=== PATIENT | male | born 1960 | race Caucasian/White ===

== ENCOUNTER 2016-06-13 15:54 | Outpatient (CLI) | payer OTHER | END 2016-06-13 16:00 | LOC: LAB 15:54 | PROVIDERS: ATTEND Family Medicine | DX: E11.9 Type 2 diabetes mellitus without complications (principal) | CPT/HCPCS: 36415; 83036 ==

== ENCOUNTER 2016-08-12 13:56 | Outpatient (CLI) | payer OTHER | END 2016-08-12 14:10 | LOC: POD 13:56 | PROVIDERS: ATTEND Podiatrist | DX: E11.42 Type 2 diabetes mellitus with diabetic polyneuropathy (principal); B35.1 Tinea unguium | CPT/HCPCS: 99213 ==

== ENCOUNTER 2016-09-23 09:09 | Outpatient (CLI) | payer OTHER | END 2016-09-23 09:10 | LOC: LAB 09:09 | PROVIDERS: ATTEND Family Medicine | DX: E11.9 Type 2 diabetes mellitus without complications (principal) | CPT/HCPCS: 36415; 83036 ==

== ENCOUNTER 2016-11-10 14:30 | Outpatient (CLI) | payer OTHER | END 2016-11-10 14:32 | LOC: LAB 14:30 | PROVIDERS: ATTEND Family Medicine | DX: E11.9 Type 2 diabetes mellitus without complications (principal) | CPT/HCPCS: 36415; 83036 ==

== ENCOUNTER 2016-11-11 12:46 | Outpatient (CLI) | payer OTHER | END 2016-11-11 12:47 | LOC: POD 12:46 | PROVIDERS: ATTEND Podiatrist | DX: E11.42 Type 2 diabetes mellitus with diabetic polyneuropathy (principal); B35.1 Tinea unguium | CPT/HCPCS: 99213 ==

== ENCOUNTER 2017-02-24 15:37 | Outpatient (CLI) | payer OTHER | END 2017-02-24 15:40 | LOC: POD 15:37 | PROVIDERS: ATTEND Podiatrist | DX: B35.1 Tinea unguium (principal); M79.674 Pain in right toe(s); E11.42 Type 2 diabetes mellitus with diabetic polyneuropathy | CPT/HCPCS: 99213 ==

== ENCOUNTER 2017-05-19 07:47 | Outpatient (CLI) | payer OTHER ==
[2017-05-19 08:23] LABS: BASOPHILS % 0.8 (0.0-1.5); EOSINOPHILS % 4.1 % (0.0-6.8); MEAN CORPUSCULAR HEMOGLOBIN 30.2 pg (28.0-34.0); MONOCYTES % 7.7 % (0.0-11.0); NEUTROPHILS # 4.2 # k/uL (1.4-7.7)
[2017-05-19 09:31] LABS: eGFR (African) > 60; eGFR (Non-African) > 60
== END 2017-05-19 10:08 ==
LOC: LAB 07:47
PROVIDERS: ATTEND Family Medicine
DX: E11.9 Type 2 diabetes mellitus without complications (principal); E78.00 Pure hypercholesterolemia, unspecified; Z51.81 Encounter for therapeutic drug level monitoring; I10 Essential (primary) hypertension
CPT/HCPCS: 36415; 80053; 80061; 80156; 83036; 85025

== ENCOUNTER 2017-05-26 12:37 | Outpatient (CLI) | payer OTHER | END 2017-05-26 12:40 | LOC: POD 12:37 | PROVIDERS: ATTEND Podiatrist | DX: B35.1 Tinea unguium (principal); E11.42 Type 2 diabetes mellitus with diabetic polyneuropathy; M79.674 Pain in right toe(s) | CPT/HCPCS: 11721; 99213 ==

== ENCOUNTER 2017-07-07 19:23 | Emergency (ER) | payer OTHER ==
[2017-07-07 20:16] VITALS: BP 116/79
[2017-07-07 20:24] LABS: BASOPHILS % 1.1 (0.0-1.5); EOSINOPHILS % 4.2 % (0.0-6.8); MEAN CORPUSCULAR HEMOGLOBIN 30.8 pg (28.0-34.0); MEAN CORPUSCULAR VOLUME 90.7 fl (80.0-100.0); MONOCYTES % 5.5 % (0.0-11.0); NEUTROPHILS # 4.7 # k/uL (1.4-7.7)
[2017-07-07 20:29] LABS: eGFR (African) > 60; eGFR (Non-African) > 60
--- NOTE | 2017-07-07 21:59 | ED Physician Documentation ---
General Adult - HISTORIAN Historian: patient - HPI Stated Complaint: L HAND SWOLLEN/COLD Chief Complaint: General Adult Onset: hours Timing: worse Further Comments: yes (56 year old male patient with TBI brought in by staff from [facility]. Patient underwent botox injections for left arm contractures this morning. This afternoon staff noticed arm with edema and cool to touch. Dr Tripp contacted by nursing, reported edema and hypothermia would not be side effects of botox IM. Recommended evaluation in ER. 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, hypothyroid, ) Surgeries/Procedures: other (Left Above the knee amputee, Brain emboli 1992) Allergies/Adverse Reactions: Allergies Allergy/AdvReac Type Severity Reaction Status Date / Time valproic acid Allergy Verified 07/07/17 20:17 Home Medications: Ambulatory Orders Medication Instructions Recorded Acetaminophen [Tylenol] 650 mg PO Q6 PRN 07/07/17 Aspirin [Kenneth] 81 mg PO DAILY 07/07/17 Atorvastatin Calcium [Lipitor] 80 mg PO HS 07/07/17 Baclofen 10 mg PO 0812 07/07/17 Baclofen 20 mg PO 1600 07/07/17 Carbamazepine [Tegretol] 500 mg PO BID 07/07/17 Cholecalciferol [Vitamin D-3] 2,000 unit PO DAILY 07/07/17 Desmopressin Acetate 0.4 mg PO HS 07/07/17 Gabapentin [Neurontin] 300 mg PO TID 07/07/17 Gabapentin [Neurontin] 600 mg PO HS 07/07/17 Glimepiride [Amaryl] 4 mg PO 0730 07/07/17 Levothyroxine Sodium [Levoxyl] 88 mcg PO 0700 07/07/17 Loperamide HCl [Immodium] 2 mg PO PRN PRN 07/07/17 Metformin HCl [Glucophage] 500 mg PO [id number] 07/07/17 Omeprazole [Prilosec] 40 mg PO 0700 07/07/17 Topiramate 100 mg PO HS 07/07/17 Topiramate [Topamax] 50 mg PO DAILY 07/07/17 Venlafaxine HCl [Venlafaxine HCl 225 mg PO DAILY 07/07/17 ER] traZODone HCL [Desyrel] 150 mg PO HS 07/07/17 - SOCIAL HX Smoking History: cigarettes - FAMILY HX Family History: No - VITAL SIGNS Vital Signs: Vital Signs Temp Pulse Resp BP Pulse Ox 98.3 F 82 18 116/79 96 07/07/17 19:26 07/07/17 19:26 07/07/17 19:26 07/07/17 19:26 07/07/17 19:26 - REVIEWED ASSESSMENTS Nursing Assessment Reviewed: Yes Vitals Reviewed: Yes Progress - Progress Progress: Left arm elevated and wrapped in warm blanket on arrival. Left arm now warm to touch with prompt cap refill Patient staff denies any recent injury. Case discussed with Dr Vargas, arm has remained warm to touch with prompt cap refill since elevation. Will obtain US of left extremity in the morning. Appointment schedule and instructions reviewed with hourly caregiver staff. ED Results Lab/Radiology - Lab Results Lab Results: Lab Results 07/07/17 07/07/17 07/07/17 20:14 20:14 20:14 WBC 7.10 K/ul K/ul (4.00-12.00) RBC 4.74 M/ul M/ul (3.90-5.20) Hgb 14.6 g/dL g/dL (12.0-18.0) Hct 43.0 % % (37.0-53.0) MCV 90.7 fl fl (80.0-100.0) MCH 30.8 pg pg (28.0-34.0) MCHC 33.9 g/dL g/dL (30.0-36.0) RDW 14.1 % % (11.3-14.3) Plt Count 253 K/mm3 K/mm3 (130-400) Neut % (Auto) 67.0 % % (39.0-79.0) Lymph % (Auto) 20.7 % % (16.0-50.0) [place] % (Auto) 5.5 % % (0.0-11.0) Eos % (Auto) 4.2 % % (0.0-6.8) Baso % (Auto) 1.1 (0.0-1.5) Neut # (Auto) 4.7 # k/uL # k/uL (1.4-7.7) Lymph # (Auto) 1.5 # k/uL # k/uL (0.6-4.0) [place] # (Auto) 0.4 # k/uL # k/uL (0.0-0.9) Eos # (Auto) 0.3 # k/uL # k/uL (0.0-0.6) Baso # (Auto) 0.1 # k/uL # k/uL (0.0-0.5) Reactive Lymphs % 1.5 % % (0.0-5.0) Reactive Lymphs # 0.1 # k/uL # k/uL (0.0-0.8) D-Dimer 961 ng/mL H ng/mL (6.0-682) Sodium 145 mmol/L mmol/L (136-145) Potassium 3.9 mmol/L mmol/L (3.5-5.1) Chloride 107 mmol/L mmol/L (98-107) Carbon Dioxide 26 mmol/L mmol/L (22-30) BUN 14 mg/dL mg/dL (9-20) Creatinine 0.70 mg/dL mg/dL (0.66-1.25) Estimated Creat Clear 182 Est GFR ( Amer) > 60 (60 - ) Est GFR (Non-Af Amer) > 60 (60 - ) Glucose 147 mg/dL H mg/dL (74-106) Calcium 9.0 mg/dL mg/dL (8.4-10.2) Total Bilirubin 0.6 mg/dL mg/dL (0.2-1.3) AST 23 U/L U/L (15-46) ALT 28 U/L U/L (13-69) Alkaline Phosphatase 107 U/L U/L (38-126) Total Protein 7.1 g/dL g/dL (6.3-8.2) Albumin 3.9 g/dL g/dL (3.5-5.0) - Orders Orders: ED Orders Category Date Time Status CHEST 1 VIEW [RAD] Stat Exams 07/07/17 19:55 Ordered CBC/PLATELET/DIFF Stat Lab 07/07/17 20:14 Completed CMP Stat Lab 07/07/17 20:14 Completed D DIMER Stat Lab 07/07/17 20:14 Completed General Adult Physical Exam - PHYSICAL EXAM GENERAL APPEARANCE: [id number] N EENT: eye inspection normal, ROSA RESPIRATORY: no resp distress, chest non-tender, breath sounds normal CVS: reg rate & rhythm, heart sounds normal, equal pulses, no murmur, no gallop , PMI nml, no JVD, no friction rub, 24 EXTREMITIES: non-tender, normal range of motion, no evidence of injury, no edema , other (left arm with mild edema; mid left forearm cool to touch, left hand cool to touch, cap refill 5 seconds; left AKA, WC bound) NEURO: sensation nml, mood/affect nml, cognition normal, other (left arm with contractures, minimal gross motor movement. Patient answers questions, calm and cooperative, staff reports he is at his baseline. ) Discharge Clincal Impression: left arm edema Referrals: Eduardo Vargas MD [Primary Care Provider] - 2 Days Additional Instructions: Rest Elevation of left arm at all times until Ultrasound completed. Return for Ultrasound of left arm tomorrow at [facility] at 9:00am Return to ER if edema becomes worse, arm is cold or cyanotic (blue/discolored). Condition: Stable Disposition: 01 HOME, SELF-CARE Decision to Admit: NO Decision Time: 21:59
--- NOTE | 2017-07-08 06:45 | Diagnostic Imaging Report ---
TORRES RODRIGUEZ (ERIKA) - [facility] [address] [facility].[address] [address] Report Submission Date: Jul 07, 2017 8:25:40 PM [employer] Patient Study Name: KAELA BURGOS Date: Jul 07, 2017 8:10:57 PM [employer] Modality Type: CR Gender: M Description: CHEST : 64 Institution: [facility] Physician: TORRES RODRIGUEZ) - ER Portable chest History: Cough and left upper extremity edema Findings: Low lung volumes, multiple healed left rib fractures, and superior mediastinal widening are observed. The lungs are clear. Heart size is normal. There is no pleural effusion. Pulmonary vascularity is normal. Impression: 1. Mild superior mediastinal widening is nonspecific in the setting of obesity. 2. Low lung volumes. 3. Healed left rib fractures. Electronically signed on Jul 07, 2017 8:25:40 PM [employer] by: Yaakov BREEN
== END 2017-07-07 22:03 | disposition home or self-care (01) ==
LOC: ED 19:23
DX: R60.9 Edema, unspecified (principal)
CPT/HCPCS: 71010; 80053; 85025; 85379; 99282; 99283

== ENCOUNTER 2017-07-08 08:30 | Outpatient (CLI) | payer OTHER ==
[2017-07-07 20:16] VITALS: BP 116/79
--- NOTE | 2017-07-08 09:44 | Diagnostic Imaging Report ---
ANDREA ALONSO [facility] [address] [facility] [address] [place] [address]. [id number] Report Submission Date: Jul 08, 2017 9:37:39 AM [employer] Patient Study Name: KAELA BURGOS Date: Jul 08, 2017 9:03:03 AM [employer] Modality Type: US Gender: M Description: UNILAT LTD STDY EXT VEINS : 64 Institution: [facility] Physician: ANDREA ALONSO Duplex sonography of the deep venous system of the left upper extremity with color Doppler analysis . Clinical history: Edema of the left upper extremity with pain, history of an old trauma 30 years ago . Study is performed routinely . Left internal jugular vein is patent free of any clots Left subclavian, axillary and brachial veins are patent free of any clots. Doppler signal is normal. Left basilic vein, left cephalic veins and left ulnar veins are patent free of any clots. Left radial vein is patent. No visible deep venous thrombosis. All the veins are normally compressed. Impression: No visible deep venous thrombosis of the left upper extremity Electronically signed on Jul 08, 2017 9:37:39 AM [employer] by: Sanchez BREEN
== END 2017-07-08 08:32 ==
LOC: RAD 08:30
PROVIDERS: ATTEND Emergency Medicine
DX: R79.1 Abnormal coagulation profile (principal); R60.9 Edema, unspecified
CPT/HCPCS: 93971

== ENCOUNTER 2017-08-25 12:59 | Outpatient (CLI) | payer OTHER | END 2017-08-25 13:00 | LOC: POD 12:59 | PROVIDERS: ATTEND Podiatrist | DX: E11.42 Type 2 diabetes mellitus with diabetic polyneuropathy (principal); B35.1 Tinea unguium; M79.674 Pain in right toe(s) | CPT/HCPCS: 99213 ==

== ENCOUNTER 2017-09-02 12:26 | Outpatient (CLI) | payer OTHER ==
[2017-09-02 12:45] LABS: BASOPHILS % 0.6 (0.0-1.5); EOSINOPHILS % 1.6 % (0.0-6.8); MEAN CORPUSCULAR HEMOGLOBIN 30.5 pg (28.0-34.0); MONOCYTES % 7.6 % (0.0-11.0); NEUTROPHILS # 8.9 # k/uL (1.4-7.7)
[2017-09-02 12:48] LABS: APPEARANCE,URINE Slightly Cloudy (CLEAR); COLOR,URINE Yellow (YELLOW); OCCULT BLOOD,URINE 2+ (NEGATIVE); UROBILINOGEN URINE 0.2 Eu (0.2-1.0)
[2017-09-02 13:08] LABS: eGFR (African) > 60; eGFR (Non-African) > 60
[2017-09-02 13:19] LABS: AMORPHOUS SEDIMENT,UR MODERATE (NEGATIVE)
== END 2017-09-02 12:27 ==
LOC: LAB 12:26
PROVIDERS: ATTEND Family Medicine
DX: E03.9 Hypothyroidism, unspecified (principal); E11.9 Type 2 diabetes mellitus without complications; N39.498 Other specified urinary incontinence; Z51.81 Encounter for therapeutic drug level monitoring
CPT/HCPCS: 36415; 80053; 80156; 81002; 83036; 84443; 85025

== ENCOUNTER 2017-09-02 17:13 | Emergency (ER) | payer OTHER ==
--- NOTE | 2017-09-02 17:23 | ED Physician Documentation ---
General Adult - HISTORIAN Historian: patient - HPI Stated Complaint: high blood sugar Chief Complaint: General Adult Onset: hours (1), other (although healthcare administration internship with him states she notes he has been "acting off" for a few days. His PCP - Dr Vargas- did some lab this am. He has no complaints today. He states he is hungry ) Timing: better (blood sugar in ambulance and in ER is 160 and 147 ) Further Comments: yes (Denies any weakness. He has no recent head injury. Denies any new seizures.) Last known Well Code/Unknown Code: Unknown - ROS CONST: denies: fever, sweating, recent illness, weakness CVS/RESP: denies: chest pain, shortness of breath, cough GI/: denies: vomiting, nausea, diarrhea MS/SKIN/LYMPH: none NEURO/PSYCH: denies: headache - PAST HX Past History: other Other History: other Surgeries/Procedures: other Immunizations: UTD Allergies/Adverse Reactions: Allergies Allergy/AdvReac Type Severity Reaction Status Date / Time valproic acid Allergy Verified 07/07/17 20:17 Home Medications: Ambulatory Orders Medication Instructions Recorded Acetaminophen [Tylenol] 650 mg PO Q6 PRN 07/07/17 Aspirin [Kenneth] 81 mg PO DAILY 07/07/17 Atorvastatin Calcium [Lipitor] 80 mg PO HS 07/07/17 Baclofen 10 mg PO 0812 07/07/17 Baclofen 20 mg PO 1600 07/07/17 Carbamazepine [Tegretol] 500 mg PO BID 07/07/17 Cholecalciferol [Vitamin D-3] 2,000 unit PO DAILY 07/07/17 Desmopressin Acetate 0.4 mg PO HS 07/07/17 Gabapentin [Neurontin] 300 mg PO TID 07/07/17 Gabapentin [Neurontin] 600 mg PO HS 07/07/17 Loperamide HCl [Immodium] 2 mg PO PRN PRN 07/07/17 Metformin HCl [Glucophage] 500 mg PO [id number] 07/07/17 Topiramate 100 mg PO HS 07/07/17 Topiramate [Topamax] 50 mg PO DAILY 07/07/17 traZODone HCL [Desyrel] 150 mg PO HS 07/07/17 - SOCIAL HX Smoking History: non-smoker Alcohol Use: none Drug Use: none - FAMILY HX Family History: No - VITAL SIGNS Vital Signs: Vital Signs Temp Pulse Resp BP Pulse Ox 116/79 07/07/17 19:26 - REVIEWED ASSESSMENTS Nursing Assessment Reviewed: Yes Vitals Reviewed: Yes ED Results Lab/Radiology - Lab Results Lab Results: 1730: discussed labs that Dr Vargas had drawn earlier in day. No significant findings. No emergent issues to be tested today. Follow up with PCP for outpt testing on symptoms he had addressed DG General Adult Physical Exam - PHYSICAL EXAM GENERAL APPEARANCE: no distress EENT: eye inspection normal, ENT inspection normal, ROSA NECK: normal inspection RESPIRATORY: no resp distress, chest non-tender, breath sounds normal CVS: reg rate & rhythm, heart sounds normal, no murmur ABDOMEN: soft, normal bowel sounds SKIN: warm/dry, normal color NEURO: oriented X3, CN's nml as tested Discharge Clincal Impression: Abnormal blood sugar Referrals: Eduardo Vargas MD [Primary Care Provider] - 2 Days Additional Instructions: 1.continued meds 2. Follow up with Dr Vargas on labs 3. return to ER for any concerns Condition: Stable Disposition: 01 HOME, SELF-CARE Decision to Admit: NO Date of Decison to Admit: 09/02/17 Decision Time: 17:38
[2017-09-02 17:36] VITALS: BP 130/94
== END 2017-09-02 18:00 | disposition home or self-care (01) ==
LOC: ED 17:13
DX: R73.9 Hyperglycemia, unspecified (principal)
CPT/HCPCS: 99282

== ENCOUNTER 2017-09-21 15:20 | Outpatient (CLI) | payer OTHER | END 2017-09-21 15:23 | LOC: LAB 15:20 | PROVIDERS: ATTEND Nurse Practitioner Family | DX: Z51.81 Encounter for therapeutic drug level monitoring (principal) | CPT/HCPCS: 36415; 80156; 85610 ==

== ENCOUNTER 2017-10-13 14:26 | Outpatient (CLI) | payer OTHER | END 2017-10-13 14:28 | LOC: LAB 14:26 | PROVIDERS: ATTEND Nurse Practitioner Family | DX: Z51.81 Encounter for therapeutic drug level monitoring (principal) | CPT/HCPCS: 36415; 85610 ==

== ENCOUNTER 2017-10-23 14:28 | Outpatient (CLI) | payer OTHER | END 2017-10-23 15:00 | LOC: LAB 14:28 | PROVIDERS: ATTEND Nurse Practitioner Family | DX: Z51.81 Encounter for therapeutic drug level monitoring (principal) | CPT/HCPCS: 36415; 85610 ==

== ENCOUNTER 2017-10-30 09:10 | Outpatient (CLI) | payer OTHER | END 2017-10-30 09:15 | LOC: LAB 09:10 | PROVIDERS: ATTEND Nurse Practitioner Family | DX: Z51.81 Encounter for therapeutic drug level monitoring (principal) | CPT/HCPCS: 36415; 85610 ==

== ENCOUNTER 2017-11-16 10:07 | Outpatient (CLI) | payer OTHER | END 2017-11-16 10:10 | LOC: LAB 10:07 | PROVIDERS: ATTEND Nurse Practitioner Family | DX: Z51.81 Encounter for therapeutic drug level monitoring (principal) | CPT/HCPCS: 36415; 85610 ==

== ENCOUNTER 2017-12-01 14:22 | Outpatient (CLI) | payer OTHER | END 2017-12-01 14:23 | LOC: LAB 14:22 | PROVIDERS: ATTEND Nurse Practitioner Family | DX: Z51.81 Encounter for therapeutic drug level monitoring (principal) | CPT/HCPCS: 36415; 85610 ==

== ENCOUNTER 2017-12-08 10:43 | Outpatient (CLI) | payer OTHER | END 2017-12-08 10:44 | LOC: LAB 10:43 | PROVIDERS: ATTEND Nurse Practitioner Family | DX: Z51.81 Encounter for therapeutic drug level monitoring (principal) | CPT/HCPCS: 36415; 85610 ==

== ENCOUNTER 2017-12-10 10:01 | Observation (INO) | payer OTHER ==
[2017-12-10 10:37] LABS: BASOPHILS % 0.5 (0.0-1.5); EOSINOPHILS % 3.4 % (0.0-6.8); MEAN CORPUSCULAR VOLUME 87.8 fl (80.0-100.0); MONOCYTES % 8.5 % (0.0-11.0); NEUTROPHILS # 3.2 # k/uL (1.4-7.7)
[2017-12-10 10:53] LABS: eGFR (African) > 60; eGFR (Non-African) > 60
[2017-12-10] MEDS ORDERED: traZODone HCL 50 MG TABLET PO PRN (13:00)
[2017-12-10] MEDS ORDERED: PANTOPRAZOLE SODIUM 40 MG TABLET PO ONE (13:00)
[2017-12-10] MEDS ORDERED: LEVOTHYROXINE SODIUM 50 MCG TABLET PO SCH (13:00)
[2017-12-10] MEDS ORDERED: ASPIRIN 81 MG CHEW TAB PO ONE (13:00)
--- NOTE | 2017-12-10 14:19 | History and Physical Report ---
HISTORY OF PRESENT ILLNESS: Drew is placed in as observation today due to mental status changes after accidentally receiving one of the other resident's medication at his [facility]. Specifically, he received 150 mg of Clozaril which should have been given to another patient. Since then, he has been extremely somnolent. He was brought to the emergency room for evaluation. His labs actually are pretty stable; however, he has been very difficult to awake. He does open his eyes but really does not follow commands very much and is extremely somnolent. PAST MEDICAL HISTORY: 1. History of diabetes mellitus type 2. 2. Anxiety disorder. 3. Major depressive disorder. 4. Cognitive deficits. 5. Hypercholesterolemia. 6. Headaches. 7. Seizure. 8. Peripheral arterial disease. 9. Hypothyroidism. PAST SURGICAL HISTORY: 1. Left [id number] amputation due to peripheral arterial disease. 2. He had brain surgery in 1992 due to an embolism. CURRENT MEDICATIONS: His current medications are taken from his records from the [facility] are: 1. Levothyroxine 88 mcg daily. 2. Vitamin D 2000 units daily. 3. Aspirin 81 mg daily. 4. Venlafaxine 225 mg p.o. daily. 5. Omeprazole 40 mg daily. 6. Topiramate 50 mg p.o. in the a.m. and 100 mg at bedtime. 7. Glimepiride 4 mg 1 p.o. daily. 8. Metformin 500 mg p.o. daily. 9. Baclofen 10 mg 2 p.o. at 4 p.m. and 1 p.o. at 8 a.m. and 12 noon. 10. Tegretol 500 mg p.o. b.i.d. 11. Neurontin 300 mg p.o. t.i.d. and 600 mg at bedtime. 12. Lipitor 80 mg p.o. daily. 13. Trazodone 150 mg p.o. at bedtime. 14. Several p.r.n. medications. ALLERGIES: He is allergic to Valproic acid. REVIEW OF SYSTEMS: Review of systems cannot be obtained because of his somnolence. PHYSICAL EXAMINATION: General: This is an obese 57-year-old male who does open his eyes to command but really then closes them right away. HEENT: Head is normocephalic and traumatic. He does have a scar on his right taoist from his craniotomy. He has false dentition. Neck: No JVD can be appreciated because of his body habitus. Lungs: Show decreased air movement in all lung fernandez. Heart: Regular rhythm. Abdomen: Protuberant and obese. No guarding. No rebound. It does not appear to be tender. Extremities: His right lower extremity is intact but it does not have any pulses but is warm and does have fairly good capillary refill. He has a left [id number] amputation noted. ASSESSMENT: 1. Accidental dosing of Clozaril. 2. Diabetes mellitus type 2. We are following his blood sugars. Those are actually doing pretty well. His last one was 180. 3. Cognitive disability. 4. Morbid obesity. 5. History of seizures but without any recently. 6. Hypothyroidism. PLAN: 1. We will observe him tonight. 2. Hopefully, he will be able to wake up again. 3. We will continue him on oxygen, as well as telemetry. 4. Hopefully, we will be able to discharge him back to the [facility] tomorrow. NUHA
[2017-12-10] MEDS: BACLOFEN 10 MG TABLET PO SCH ×3 (15:47→21:19)
[2017-12-10] MEDS: ATORVASTATIN CALCIUM 80 MG TABLET PO SCH ×2 (15:47→21:19)
[2017-12-10] MEDS: GABAPENTIN 300 MG CAPSULE PO SCH ×2 (15:49→18:06)
[2017-12-10 16:11] LABS: APPEARANCE,URINE CLEAR (CLEAR); COLOR,URINE YELLOW (YELLOW); OCCULT BLOOD,URINE NEGATIVE (NEGATIVE); UROBILINOGEN URINE 0.2 Eu (0.2-1.0)
--- NOTE | 2017-12-10 16:18 | ED Physician Documentation ---
Altered Mental Status - HISTORIAN Historian: paramedics, other (skin care consultant) - HPI Stated Complaint: Accidentally given someone else's meds Chief Complaint: Altered Mental Status Onset: minutes Last known Well Date: 12/10/17 Last Known Well Time: 08:00 Last known Well Code/Unknown Code: Unknown Character of Altered Mental Status: unresponsive Context: other (patient became lethargic at [employer] today) Cognition is Usually: alert, oriented x3 Gait is Usually: walks w/o assistance Further Comments: yes (57 year old male patient brought in from [employer] [facility] with altered mental status. Patient was accidently given another patient's medications; see scanned documents. Including clozaril and diabetes meds. On arrival, lethargic. .) - ROS EYES/ENT: none (Patient unable to contribute to ROS due to lethary. ) - PAST HX Past History: confusion, diabetes Type 2, depression Other History: other (anxiety, mental retardation; HLD, Seizures, PAD, hypothyroidism ) Surgeries/Procedures: other (left AKA) Allergies/Adverse Reactions: Allergies Allergy/AdvReac Type Severity Reaction Status Date / Time valproic acid Allergy Verified 12/10/17 10:18 Home Medications: Ambulatory Orders Medication Instructions Recorded Acetaminophen [Tylenol] 650 mg PO Q6 PRN 07/07/17 Aspirin [Kenneth] 81 mg PO DAILY 07/07/17 Atorvastatin Calcium [Lipitor] 80 mg PO HS 07/07/17 Baclofen 10 mg PO 0812 07/07/17 Baclofen 20 mg PO 1600 07/07/17 Cholecalciferol [Vitamin D-3] 2,000 unit PO DAILY 07/07/17 Desmopressin Acetate 0.4 mg PO HS 07/07/17 Gabapentin [Neurontin] 300 mg PO TID 07/07/17 Gabapentin [Neurontin] 600 mg PO HS 07/07/17 Loperamide HCl [Immodium] 2 mg PO PRN PRN 07/07/17 Metformin HCl [Glucophage] 500 mg PO [id number] 07/07/17 Topiramate 100 mg PO HS 07/07/17 Topiramate [Topamax] 50 mg PO DAILY 07/07/17 - SOCIAL HX Smoking History: non-smoker - FAMILY HX Family History: denies: none - VITAL SIGNS Vital Signs: Vital Signs Temp Pulse Resp BP Pulse Ox 98.0 F 76 16 110/65 94 12/10/17 15:06 12/10/17 15:06 12/10/17 15:06 12/10/17 15:06 12/10/17 15:06 - REVIEWED ASSESSMENTS Nursing Assessment Reviewed: Yes Vitals Reviewed: Yes Progress - Progress Progress: Multiple critical trauma patients in ER; Patient moved to [facility] for further work up. [address] Vargas - nathan accepted patient as observation admission. ED Results Lab/Radiology - Lab Results Lab Results: Lab Results 12/10/17 12/10/17 12/10/17 10:30 10:30 10:30 WBC 4.90 K/ul K/ul (4.00-12.00) RBC 4.77 M/ul M/ul (3.90-5.20) Hgb 14.3 g/dL g/dL (12.0-18.0) Hct 41.9 % % (37.0-53.0) MCV 87.8 fl fl (80.0-100.0) MCH 30.0 pg pg (28.0-34.0) MCHC 34.1 g/dL g/dL (30.0-36.0) RDW 15.1 % H % (11.3-14.3) Plt Count 243 K/mm3 K/mm3 (130-400) Neut % (Auto) 65.2 % % (39.0-79.0) Lymph % (Auto) 20.4 % % (16.0-50.0) [place] % (Auto) 8.5 % % (0.0-11.0) Eos % (Auto) 3.4 % % (0.0-6.8) Baso % (Auto) 0.5 (0.0-1.5) Neut # (Auto) 3.2 # k/uL # k/uL (1.4-7.7) Lymph # (Auto) 1.0 # k/uL # k/uL (0.6-4.0) [place] # (Auto) 0.4 # k/uL # k/uL (0.0-0.9) Eos # (Auto) 0.2 # k/uL # k/uL (0.0-0.6) Baso # (Auto) 0.0 # k/uL # k/uL (0.0-0.5) Reactive Lymphs % 2.0 % % (0.0-5.0) Reactive Lymphs # 0.1 # k/uL # k/uL (0.0-0.8) PT 17.0 Seconds H Seconds (9.4-11.6) INR 1.61 H (0.9-1.2) Sodium 141 mmol/L mmol/L (136-145) Potassium 4.0 mmol/L mmol/L (3.5-5.1) Chloride 109 mmol/L H mmol/L (98-107) Carbon Dioxide 25 mmol/L mmol/L (22-30) BUN 18 mg/dL mg/dL (9-20) Creatinine 0.70 mg/dL mg/dL (0.66-1.25) Estimated Creat Clear 191 Est GFR ( Amer) > 60 (60 - ) Est GFR (Non-Af Amer) > 60 (60 - ) Glucose 140 mg/dL H mg/dL (74-106) Calcium 8.9 mg/dL mg/dL (8.4-10.2) Total Bilirubin 0.1 mg/dL L mg/dL (0.2-1.3) AST 19 U/L U/L (15-46) ALT 32 U/L U/L (13-69) Alkaline Phosphatase 103 U/L U/L (38-126) Total Protein 7.1 g/dL g/dL (6.3-8.2) Albumin 3.9 g/dL g/dL (3.5-5.0) - Orders Orders: ED Orders Category Date Time Status Continuous EKG monitoring Q1H Care 12/10/17 10:17 Completed Continuous Pulse Oximetry Q1H Care 12/10/17 10:17 Completed Document Bowel Movement Q8H Care 12/10/17 12:[address] Vargas NOW Care 12/10/17 13:00 Ordered Monitor for changes in mental Q2H Care 12/10/17 12:56 Active No Concentrated Sweets Diet 12/10/17 Breakfast Ordered CBC/PLATELET/DIFF Stat Lab 12/10/17 10:30 Completed CMP Stat Lab 12/10/17 10:30 Completed PT-INR Stat Lab 12/10/17 10:30 Completed UA W/MICRO IF INDICATED Stat Lab 12/10/17 16:00 Completed Urine drug screen [DRUG SCREEN URINE MEDICAL ONLY] Stat Lab 12/10/17 16:45 Completed Aspirin Med 12/10/17 13:00 Discontinued 81 mg PO NOW ONE Atorvastatin Calcium [Lipitor] Med 12/10/17 13:00 Active 80 mg PO HS Baclofen [Lioresal] Med 12/10/17 13:00 Active 10 mg PO QID Carbamazepine [Tegretol] Med 12/10/17 21:00 Active 500 mg PO BID Gabapentin [Neurontin] Med 12/10/17 13:00 Active 300 mg PO TID Levothyroxine Sodium Med 12/10/17 13:00 Discontinued 88 mcg PO 0700 Pantoprazole Sodium [Protonix] Med 12/10/17 13:00 Discontinued 40 mg PO NOW ONE Topiramate [Topamax] Med 12/10/17 21:00 Active 100 mg PO HS Venlafaxine HCl [Effexor Xr] Med 12/11/17 09:00 Active 225 mg PO DAILY traZODone HCL [Desyrel] Med 12/10/17 13:00 Active 150 mg PO HS PRN Resuscitation Status Routine Oth 12/10/17 Ordered Oxygen Daily Oxygen 12/10/17 13:00 Ordered EKG WITH COMPARISON Stat Ther 12/10/17 10:17 Ordered Altered Mental Status Physical - Physical Exam General Appearance: lethargic Neuro/Psych: none slow to respond, withdraws (to tactile stimuli) nml as tested Cerebellar Exam: nml as tested, nml gait Peripheral Exam: motor nml, sensation nml, reflexes nml HEENT: ROSA, EOM's intact, no apparent trauma, ENT inspection nml, oropharynx nml, airway intact Respiratory: no resp distress, chest non-tender, breath sounds normal CVS: reg rate & rhythm, heart sounds normal, equal pulses, no murmur, no gallop , PMI nml, no JVD, no friction rub, 24 Abdomen: non-tender, no organomegaly, nml bowel sounds, no distention Skin: normal color, warm/dry, NR, INT, DR Extremities: non-tender, normal range of motion, no evidence of injury, no edema , J, COLLATERAL SPECIALIST Discharge Clincal Impression: Altered mental status Qualifiers: Altered mental status type: stupor Qualified Code(s): R40.1 - Stupor Accidental overdose Qualifiers: Encounter type: initial encounter Qualified Code(s): T50.901A - Poisoning by unspecified drugs, medicaments and biological substances, accidental ( unintentional), initial encounter Condition: Fair Disposition: 09 ADMITTED INPATIENT Decision to Admit: [id number] Decision Time: 11:30
[2017-12-10 16:47] LABS: CANNABINOIDS NEGATIVE ng/mL (< 50); METHYLENEDIOXYMETHAMPHETAMINE NEGATIVE ng/mL (<500)
[2017-12-10 20:08] VITALS: BMI 38.0
[2017-12-10] MEDS ORDERED: TOPIRAMATE 50 MG TABLET PO SCH (21:00)
[2017-12-10] MEDS: CARBAMAZEPINE 200 MG TABLET PO SCH (21:20)
[2017-12-11] MEDS ORDERED: LEVOTHYROXINE SODIUM 25 MCG TABLET ONE (01:35)
[2017-12-11] MEDS ORDERED: LEVOTHYROXINE SODIUM 50 MCG TABLET PO SCH (07:00)
[2017-12-11] MEDS ORDERED: VENLAFAXINE HCL 37.5 MG CAP.ER.24H PO SCH (09:00)
[2017-12-11] MEDS: GABAPENTIN 300 MG CAPSULE PO SCH (09:45)
[2017-12-11] MEDS: BACLOFEN 10 MG TABLET PO SCH (09:45)
[2017-12-11] MEDS: CARBAMAZEPINE 200 MG TABLET PO SCH (09:45)
[2017-12-11 10:43] VITALS: BP 150/100
--- NOTE | 2017-12-14 11:51 | Discharge Summary ---
DATE OF ADMISSION: December 10, 2017 DATE OF DISCHARGE: December 11, 2017 DIAGNOSES ON THIS HOSPITALIZATION: 1. Accidental overdose. 2. Altered mental status. 3. Abnormal blood sugars. SUMMARIZATION OF ADMISSION HISTORY AND PHYSICAL: This is a 57-year-old male well known to myself who presented after accidentally been given 150 mg of Clozaril at the [facility]term [facility]. He became extremely somnolent and was brought initially to the emergency room and it was felt that it was unsafe for him to be discharged back to the long-term. He was observed yesterday and kept on telemetry. No ectopy was noted and he did awaken by the morning of discharge. He was back to his baseline. He was discharged to home in markedly improved condition with continuation of all of his current medications. DISCHARGE INSTRUCTIONS: He will follow up in 2 weeks in the office. NUHA
== END 2017-12-11 10:35 | disposition home or self-care (01) ==
LOC: ED 10:01 → SUPCPDRO 10:01 → SOUTH 14:43
PROVIDERS: ADMIT Family Medicine; ATTEND Family Medicine
DX: T50.901A Poisoning by unspecified drugs, medicaments and biological substances, accidental (unintentional), initial encounter (principal); X58.XXXA Exposure to other specified factors, initial encounter; Y92.9 Unspecified place or not applicable; Y93.9 Activity, unspecified
CPT/HCPCS: 80053; 80377; 81002; 85025; 85610; G0378; J3490; 99217; 99284; G0481; S1016

== ENCOUNTER 2017-12-23 14:56 | Outpatient (CLI) | payer OTHER | END 2017-12-23 15:00 | LOC: LAB 14:56 | PROVIDERS: ATTEND Nurse Practitioner Family | DX: Z51.81 Encounter for therapeutic drug level monitoring (principal) | CPT/HCPCS: 36415; 85610 ==

== ENCOUNTER 2017-12-30 15:16 | Outpatient (CLI) | payer OTHER | END 2017-12-30 15:21 | LOC: LAB 15:16 | PROVIDERS: ATTEND Nurse Practitioner Family | DX: Z51.81 Encounter for therapeutic drug level monitoring (principal) | CPT/HCPCS: 36415; 85610 ==

== ENCOUNTER 2018-01-01 15:14 | Outpatient (CLI) | payer OTHER ==
[2018-01-01 16:20] LABS: APPEARANCE,URINE CLOUDY (CLEAR); COLOR,URINE YELLOW (YELLOW); OCCULT BLOOD,URINE NEGATIVE (NEGATIVE); PH URINE 6.5 (5.0 - 8.0); UROBILINOGEN URINE 0.2 Eu (0.2-1.0)
[2018-01-01 16:22] LABS: AMORPHOUS SEDIMENT,UR MODERATE (NEGATIVE)
== END 2018-01-01 15:16 ==
LOC: LAB 15:14
PROVIDERS: ATTEND Nurse Practitioner Family
DX: N39.9 Disorder of urinary system, unspecified (principal)
CPT/HCPCS: 81002; 87086

== ENCOUNTER 2018-01-11 14:27 | Outpatient (CLI) | payer OTHER | END 2018-01-11 14:30 | LOC: LAB 14:27 | PROVIDERS: ATTEND Nurse Practitioner Family | DX: Z51.81 Encounter for therapeutic drug level monitoring (principal) | CPT/HCPCS: 36415; 85610 ==

== ENCOUNTER 2018-01-21 14:20 | Outpatient (CLI) | payer OTHER | END 2018-01-21 14:21 | LOC: LAB 14:20 | PROVIDERS: ATTEND Nurse Practitioner Family | DX: Z51.81 Encounter for therapeutic drug level monitoring (principal) | CPT/HCPCS: 36415; 85610 ==

== ENCOUNTER 2018-01-25 14:20 | Outpatient (CLI) | payer OTHER | END 2018-01-25 14:21 | LOC: LAB 14:20 | PROVIDERS: ATTEND Nurse Practitioner Family | DX: Z51.81 Encounter for therapeutic drug level monitoring (principal) | CPT/HCPCS: 36415; 85610 ==

== ENCOUNTER 2018-02-02 14:30 | Outpatient (CLI) | payer OTHER | END 2018-02-02 14:32 | LOC: LAB 14:30 | PROVIDERS: ATTEND Nurse Practitioner Family | DX: Z51.81 Encounter for therapeutic drug level monitoring (principal) | CPT/HCPCS: 36415; 85610 ==

== ENCOUNTER 2018-02-11 14:18 | Outpatient (CLI) | payer OTHER | END 2018-02-11 14:20 | LOC: LAB 14:18 | PROVIDERS: ATTEND Nurse Practitioner Family | DX: Z51.81 Encounter for therapeutic drug level monitoring (principal) | CPT/HCPCS: 36415; 85610 ==

== ENCOUNTER 2018-05-25 14:29 | Outpatient (CLI) | payer OTHER ==
[2018-05-25 15:03] LABS: MEAN CORPUSCULAR HEMOGLOBIN 27.9 pg (28.0-34.0)
[2018-05-25 15:04] LABS: BASOPHILS % 0.5 (0.0-1.5); EOSINOPHILS % 2.9 % (0.0-6.8); MONOCYTES % 8.4 % (0.0-11.0)
== END 2018-05-25 14:40 ==
LOC: LAB 14:29
PROVIDERS: ATTEND Nurse Practitioner Family
DX: N39.0 Urinary tract infection, site not specified (principal)
CPT/HCPCS: 36415; 85025

== ENCOUNTER 2018-05-26 09:17 | Outpatient (CLI) | payer OTHER ==
[2018-05-26 10:28] LABS: APPEARANCE,URINE CLEAR (CLEAR); COLOR,URINE YELLOW (YELLOW); OCCULT BLOOD,URINE 2+ (NEGATIVE); UROBILINOGEN URINE 0.2 Eu (0.2-1.0)
== END 2018-05-26 09:22 | disposition home or self-care (01) ==
LOC: LAB 09:17
PROVIDERS: ATTEND Nurse Practitioner Family
DX: N39.0 Urinary tract infection, site not specified (principal)
CPT/HCPCS: 81002

== ENCOUNTER 2018-09-14 14:36 | Outpatient (CLI) | payer OTHER ==
[2018-09-14 14:55] LABS: APPEARANCE,URINE CLEAR (CLEAR); COLOR,URINE YELLOW (YELLOW); OCCULT BLOOD,URINE NEGATIVE (NEGATIVE); PH URINE 6.5 (5.0 - 8.0)
== END 2018-09-14 14:41 | disposition home or self-care (01) ==
LOC: LAB 14:36
PROVIDERS: ATTEND Nurse Practitioner Family
DX: R31.9 Hematuria, unspecified (principal)
CPT/HCPCS: 81002